=== PATIENT | female | born 1980 | race Caucasian/White ===

== ENCOUNTER → 2016-05-12 | Outpatient (CLI) | payer OTHER ==
--- NOTE | 2016-05-12 12:16 | REP ---
Thyroid sonography: History: Goiter, abnormal thyroid levels, hyperthyroidism. No comparison imaging. Findings: Thyroid isthmus is 0.2 cm in thickness. Glandular texture is slightly heterogeneous. Doppler interrogation suggests hyperemia bilaterally. There is a tiny hypoechoic area 4 mm in diameter in the central aspect of the left lobe. No definite nodule is seen. Left lobe dimensions are 4.7 x 1.8 x 1.7 cm. Right lobe dimensions are 4.7 x 2.3 x 1.6 cm. Impression: Heterogeneous thyroid gland, question thyroiditis. No definite nodule. A 4 mm hypoechoic equivocal area on the left. Signed by Markel Moura MD 05/12/2016 03:09 P
== END ==
LOC: M RAD 10:42
PROVIDERS: ATTEND Internal Medicine Endocrinology, Diabetes & Metabolism
DX: E04.1 Nontoxic single thyroid nodule (principal); E05.90 Thyrotoxicosis, unspecified without thyrotoxic crisis or storm

== ENCOUNTER → 2017-03-13 | Outpatient (CLI) | payer OTHER ==
--- NOTE | 2017-03-13 10:52 | REPMRS ---
Patient History The patient states she has not had a clinical breast exam in over a year. Family history of colorectal cancer in paternal grandfather. Retro-pectoral silicone gel implants in both breasts 2009. Taking unspecified hormones for 3 years. Digital Mammo Diagnostic Bilateral: March 13, 2017 - Exam #: [id number] Bilateral CC and MLO view(s) were taken. Technologist: Carmencita Talamantes, Technologist FINDINGS: There are scattered fibroglandular densities. There is a fairly symmetric fibroglandular pattern in both breasts. There has been no interval development of masses, areas of architectural distortion or clusters of microcalcifications typical of malignancy. Bilateral breast implants appear intact. ASSESSMENT: BI-RADS/ACR category 2 mammogram. Benign finding(s). Recommendation Routine screening mammogram of both breasts in 1 year (for women over age 40). This mammogram was interpreted with the aid of an FDA-approved computer-aided dectection system. Electronically Signed By: Douglas Jacques MD 03/13/17 [id number]
== END ==
LOC: M RAD 09:32
PROVIDERS: ATTEND Physician Assistant Medical
DX: N64.4 Mastodynia (principal)